=== PATIENT | male | born 1990 | race Caucasian/White ===

== ENCOUNTER 2019-04-08 14:08 | Emergency (ER) | payer MEDICAID ==
[2019-04-08] MEDS: DEXAMETHASONE 10 MG/ML 1 ML INJ IM (14:46)
[2019-04-08] MEDS: FAMOTIDINE 20 MG TAB PO (14:47)
[2019-04-08] MEDS: DIPHENHYDRAMINE 50 MG INJ IM (14:47)
[2019-04-08] MEDS: ALBUTEROL 0.083% (NEB) 2.5 MG/3 ML AMP HHN (15:05)
== END 2019-04-08 15:36 | disposition home or self-care (01) ==
LOC: FTE 14:08
DX: L50.9 Urticaria, unspecified (principal); R06.02 Shortness of breath
CPT/HCPCS: 94664; 96372; 99284-25

== ENCOUNTER 2019-04-13 12:47 | Emergency (ER) | payer MEDICAID | END 2019-04-13 15:07 | disposition home or self-care (01) | LOC: FTE 15:07 | DX: R21 Rash and other nonspecific skin eruption (principal) | CPT/HCPCS: 99283 ==